=== PATIENT | female | born 1960 | race Caucasian/White ===

== ENCOUNTER → 2016-08-01 | Outpatient (CLI) | payer MEDICARE, MEDICAID ==
[~2016-08-01] MED LIST: AC325T PO; CTLP20T PO; CYAN1TAB26 PO; GLIM2TAB PO; GUAI240S10 PO; IBP200T PO; LOVA40TA2 PO; MECL-105 PO; MOM10U PO; NPB.9O; SITA1TAB6
--- NOTE | 2016-08-02 09:38 | Diagnostic Imaging Report ---
INDICATION: Screening. COMPARISON: June 2015. The current digital study was evaluated with a Computer Aided Detection (CAD). FINDINGS: No masses have developed. There are no clustered calcifications. No architectural distortion. IMPRESSION: Stable bilateral mammogram. Routine followup recommended. ACR BI-RADS Category 1: Negative. Result letter will be mailed to the patient. Note: At least 10% of breast cancer is not imaged by mammography. Dictated by: Dictated on workstation # [id number]
== END ==
LOC: RAD 11:30
PROVIDERS: ATTEND Family Medicine
DX: Z12.31 Encounter for screening mammogram for malignant neoplasm of breast (principal)